=== PATIENT | female | born 1960 | race Caucasian/White ===

== ENCOUNTER 2019-01-24 15:53 | Emergency (ER) | payer BC ==
--- NOTE | 2019-01-24 16:45 | ED Physician Documentation ---
History of Present Illness - Stated complaint Stated Complaint: RT KNEE SWELLING - Chief complaint Chief Complaint: Ext Problem - Additonal information Additional information: This is a 59-year-old female presents with right knee pain. Patient was walking down the stairs she stepped onto her heel for foot and she felt a popping sensation on her right posterior lateral. aspect of her knee she has been able to walk on her knee, but the area behind her knee on the right is sore. She tried using crutches to help prevent it from getting more painful. She has been taking some ibuprofen with some relief of her pain. No fever, no surgeries to the knee. Review of Systems Constitutional: denies: Fever Musculoskeletal: reports: Extremity pain PD PAST MEDICAL HISTORY - Present Medications Home Medications: Ambulatory Orders Medication Instructions Recorded Confirmed No Known Home Medications 01/24/19 01/24/19 - Allergies Allergies/Adverse Reactions: Allergies Allergy/AdvReac Type Severity Reaction Status Date / Time No Known Drug Allergies Allergy Verified 01/24/19 16:04 PD ED PE NORMAL - Vitals Vital signs reviewed: Yes - General General: Alert and oriented X 3 - HEENT HEENT: Atraumatic - Respiratory Respiratory: No respiratory distress - Extremities Extremities: Other (There is some mild edema of the right leg in the posterior aspect/popliteal fossa. The patella, quadriceps tendon, patellar tendon, MCL LC L are all nontender. There is no pain along the joint line. Anterior and posterior drawer test as well as varus and valgus stress testing is negative for laxity. Patient is able to extend her knee to 180 degrees and flex against resistance, though the flexion does cause some pain. Her distal strength is normal and sensation is Intact to light touch. She has tenderness over the Lateral hamstring tendons, No bruising, and the tendons feel intact.) Results - Vitals Vitals: Oxygen O2 Source Room air PD MEDICAL DECISION MAKING - ED course Complexity details: considered differential (Strain, hamstring sprain, tendon damage/rupture, ligamentous injury, fracture) ED course: On exam patient has no bony tenderness, excellent ROM of knee, no signs of fracture. She has very good strength with flexion and extension against resistance, and her tendons and ligaments appear intact. No signs of infection. Given the location of her tenderness I think hamstring injury is probable. She has no bruising around the area and I do not see signs of rupture on exam palpating her tendons and using strength testing. I discussed continued use of crutches, supportive care, and close PCP follow up. If she is not having signficant improvement she warrants an US to assess the extent of the hamstring injury. After a careful discussion of return precautions patient was discharged home. Departure - Departure Disposition: 01 Home, Self Care Clinical Impression: Right hamstring injury Qualifiers: Encounter type: initial encounter Qualified Code(s): S76.301A - Unspecified injury of muscle, fascia and tendon of the posterior muscle group at thigh level, right thigh, initial encounter Condition: Good Follow-Up: Oz Mcginnis DO [Primary Care Provider] - Within 1 week Comments: You have tenderness over your hamstrings, and you might have had an injury or tear of the hamstring. Please rest your leg, ice it at least 4 times daily for the next 48 hours, use crutches, and take Tylenol 650 mg every 6 hours and ibuprofen 600 mg every 6 hours as needed for pain. Schedule follow-up with your primary care provider in the next week, if you are having continued or not improving pain, you should likely get an ultrasound to assess for any significant tear or injury of the hamstrings. If you are having worsening symptoms such as signs of or severe pain, return to the emergency department Discharge Date/Time: 01/24/19 17:07
[2019-01-24 17:07] VITALS: BP 157/107
== END 2019-01-24 17:07 | disposition home or self-care (01) ==
LOC: ED 15:53
DX: S76.301A Unspecified injury of muscle, fascia and tendon of the posterior muscle group at thigh level, right thigh, initial encounter (principal); M25.561 Pain in right knee; X50.1XXA Overexertion from prolonged static or awkward postures, initial encounter; Y93.01 Activity, walking, marching and hiking
CPT/HCPCS: 99282

== ENCOUNTER 2019-03-17 11:56 | Outpatient (CLI) | payer BC, OTHER ==
--- NOTE | 2019-03-17 17:20 | XRAY Report ---
Reason: LEFT WRIST PAIN Procedure Date: 03/17/2019 Accession Number: [id number] / [id number] Procedure: WCP - Wrist 3 View LT CPT Code: Final Report FULL RESULT: EXAM: LEFT WRIST RADIOGRAPHY EXAM DATE: 03/17/2019 11:56 AM. CLINICAL HISTORY: LEFT WRIST PAIN, injury. COMPARISON: None. TECHNIQUE: 3 views. FINDINGS: Bones: Short fifth metacarpal. No fractures or bone lesions. Joints: Normal. No subluxations. Soft Tissues: Normal. No soft tissue swelling. IMPRESSION: No left wrist fracture or malalignment seen. RADIA
== END 2019-03-17 23:59 | disposition home or self-care (01) ==
LOC: DI.WCP 11:56
PROVIDERS: ATTEND Family Medicine
DX: M25.532 Pain in left wrist (principal)

== ENCOUNTER 2020-06-06 07:30 | Outpatient (CLI) | payer OTHER ==
[2020-06-06 12:03] LABS: BASOPHILS % (AUTO) 0.3 %; EOSINOPHILS # (AUTO) 0.1 10^3/uL (0.0-0.7); EOSINOPHILS % (AUTO) 1.3 %; HCT - HEMATOCRIT 46.3 % (37.0-47.0); HGB - HEMOGLOBIN 14.2 g/dL (12.0-16.0); LYMPHOCYTES # (AUTO) 1.8 10^3/uL (1.5-3.5); LYMPHOCYTES % (AUTO) 18.5 %; MEAN CORPUSCULAR HEMOGLOBIN 28.2 pg (27.0-31.0); MEAN CORPUSCULAR HGB CONC 30.7 g/dL (32.0-36.0); MONOCYTES # (AUTO) 0.6 10^3/uL (0.0-1.0); MONOCYTES % (AUTO) 6.2 %; NEUTROPHILS # (AUTO) 7.1 10^3/uL (1.5-6.6); NEUTROPHILS % (AUTO) 72.5 %; PLT - PLATELET COUNT 300 10^3/uL (130-450); RED BLOOD COUNT 5.03 10^6/uL (4.20-5.40); RED CELL DISTRIBUTION WIDTH 14.6 % (12.0-15.0); WHITE BLOOD COUNT 9.8 x10^3/uL (4.8-10.8)
[2020-06-06 12:07] LABS: ALBUMIN 4.1 g/dL (3.2-5.5); ALBUMIN/GLOBULIN RATIO 1.1 (1.0-2.2); ALKALINE PHOSPHATASE 65 IU/L (42-121); ALT ALANINE AMINOTRANSFERASE 29 IU/L (10-60); AST ASPARTATE AMINOTRANSFERASE 28 IU/L (10-42); BILIRUBIN,TOTAL 0.4 mg/dL (0.2-1.0); BUN - BLOOD UREA NITROGEN 18 mg/dL (6-20); CALCIUM 9.6 mg/dL (8.5-10.3); CARBON DIOXIDE - CO2 28 mmol/L (21-32); CHLORIDE 103 mmol/L (101-111); CHOL/HDL RATIO 4.1 (<4.4); CHOLESTEROL 202 mg/dL; CREATININE 0.7 mg/dL (0.4-1.0); GFR - MDRD 86 (>89); GLUCOSE 166 mg/dL (70-100); HDL CHOLESTEROL 49 mg/dL; LDL CHOLESTEROL,CALCULATED 129 mg/dL; LDL/HDL RATIO 2.6 (<4.4); POTASSIUM 4.6 mmol/L (3.5-5.0); SODIUM 141 mmol/L (135-145); TOTAL PROTEIN 7.8 g/dL (6.7-8.2); TRIGLYCERIDES 120 mg/dL; VLDL CHOLESTEROL 24 mg/dL
[2020-06-06 12:18] LABS: THYROID STIMULATING HORMONE 2.56 uIU/mL (0.34-5.60)
[2020-06-06 12:25] LABS: ESTIMATED AVERAGE GLUCOSE 183 mg/dL (70-100)
== END 2020-06-06 23:59 | disposition home or self-care (01) ==
LOC: LAB.WCP 07:30
PROVIDERS: ATTEND Family Medicine
DX: E11.9 Type 2 diabetes mellitus without complications (principal)
CPT/HCPCS: 36415; 80053; 80061; 83036; 83721; 84443; 85025

== ENCOUNTER 2023-04-08 14:45 | Outpatient (CLI) | payer OTHER ==
--- NOTE | 2023-04-08 16:40 | XRAY Report ---
PROCEDURE: Chest 2V INDICATIONS: COUGH TECHNIQUE: 2 views of the chest were acquired. COMPARISON: None. FINDINGS: Surgical changes and devices: None. Lungs and pleura: No pleural effusions or pneumothorax. Lungs are clear. Mediastinum: Mediastinal contours appear normal. Heart size is normal. Bones and chest wall: No suspicious bony lesions. Overlying soft tissues appear unremarkable. IMPRESSION: No acute cardiopulmonary process. Reviewed by: Heidi Fatima MD on 04/08/2023 4:38 PM PST Approved by: Heidi Fatima MD on 04/08/2023 4:38 PM PST Station ID: [id number]
== END 2023-04-08 15:00 | disposition home or self-care (01) ==
LOC: DI.N 14:45
PROVIDERS: ATTEND Family Medicine
DX: R05.9 Cough, unspecified (principal)

== ENCOUNTER 2023-05-20 15:37 | Outpatient (CLI) | payer OTHER ==
--- NOTE | 2023-05-21 09:56 | Mammography Report ---
BILATERAL DIGITAL SCREENING MAMMOGRAM 3D/2D: 05/20/2023 CLINICAL: Routine screening. Comparison is made to exams dated: 06/11/2010 mammogram and 05/29/2009 mammogram - [facility]. Both breasts are heterogeneously dense, which may obscure small masses (category c / 51-75% glandular tissue). There are benign masses in both breasts. No significant masses, calcifications, or other findings are seen in either breast. There has been no significant interval change. IMPRESSION: BENIGN There is no mammographic evidence of malignancy. A 1 year screening mammogram is recommended. Based on the Tyrer Cuzick model (a risk assessment model) the patient's lifetime risk is 6.2% and her 10 year risk is 2.7%. According to the ACR, ACS, and NCCN guidelines, an annual breast MRI exam carolyn g with mammogram is recommended if the patient's lifetime risk is 20% or greater. This exam was interpreted at Station ID: [id number]. NOTE: For mammograms, a report in lay terms will be sent to the patient. Approximately 15% of breast malignancies will not be visualized mammographically. In the management of a palpable breast mass, a negative mammogram must not discourage biopsy of a clinically suspicious lesion. Electronically Signed By: Kem moreau/clifton:05/21/2023 08:08:25 letter sent: No_Letter ACR BI-RADS Category 2: Benign Finding(s) 3342F PARENCHYMAL PATTERN: (D) - The breast(s) demonstrate(s) heterogeneously dense fibroglandular naresh aponte. BI-RADS CATEGORY: (2) - 2 RECOMMENDATION: (ANNUAL) - Recommend routine annual screening mammography. [id number] 1 year screening LATERALITY: (B)
== END 2023-05-20 15:38 | disposition home or self-care (01) ==
LOC: DI.N 15:37
DX: Z12.31 Encounter for screening mammogram for malignant neoplasm of breast (principal); R92.333 Mammographic heterogeneous density, bilateral breasts

== ENCOUNTER 2023-07-16 10:21 | Day surgery (SDC) | payer OTHER ==
--- NOTE | 2023-07-16 06:37 | HISTORY & PHYSICAL EXAMINATION ---
PMH/PSH - Past Medical History Cardiovascular: positive: Hypertension, High cholesterol Respiratory: positive: None Endocrine/Autoimmune: positive: Type 2 diabetes GI: positive: None : positive: None HEENT: positive: None Psych: positive: None Musculoskeletal: positive: None Derm: positive: None MRSA Hx?: No Meds/Allgy - Home Medications Home Medications: Ambulatory Orders Medication Instructions Recorded Confirmed Atorvastatin [Lipitor] 10 mg PO HS 07/15/23 07/15/23 Empagliflozin [Jardiance] 10 mg PO DAILY 07/15/23 07/15/23 Lisinopril [Zestril] 10 mg PO DAILY 07/15/23 07/15/23 Metformin HCl 1,000 mg PO BID 07/15/23 07/15/23 Pravastatin [Pravachol] 10 mg PO HS 07/15/23 07/15/23 - Allergies Allergies/Adverse Reactions: Allergies Allergy/AdvReac Type Severity Reaction Status Date / Time simvastatin AdvReac Unknown Unknown Verified 07/16/23 11:09 Impression/Plan - Problem List Problem List: History of Present Illness: June is a 63 year old female referred to my office for colonoscopy after a + cologuard test. She has no symptom related to the lower GI tract. She has a positive FH of colon polyps (sister) Vital Signs: Patient Profile: 63 Years Old Female Height: 66 inches (165.10 cm) Weight: 220 pounds BMI: 35.64 Temp: 97.6 degrees F oral Pulse rate: 91 / minute Resp: 20 per minute BP sittin / 80 Vitals Entered By: Leandra Alcala RN (June 08, 2023 2:15 PM) Meds Reviewed: Done Mallampati Score Class I: The soft palate, tonsils, anterior and posterior pillars, and the entire uvula are easily visible ASA Physical Status Classification System ASA II: A patient with mild systemic disease Allergies: SIMVASTATIN (SIMVASTATIN) (Critical) * STRAWBERRIES (Critical) Social History Reviewed: Done Medications: Meds Reviewed: Done Jardiance 10 mg tablet (empagliflozin) Take 1 tablet by mouth once a day lisinopril 20 mg tablet (lisinopril) Take 1 tablet by mouth once a day metformin 1,000 mg tablet (metformin) 1 tablet by mouth twice a day with meals pravastatin 10 mg tablet (pravastatin) Take 1 tablet by mouth once a day at bedtime Problems: Problems Reviewed: Done Chronic kidney disease (CKD), stage 3a (TKV26-W59.31) Hypertension (ICD-401.9) (HOT41-R11) Colorectal cancer detected by DNA-based stool screening (LMX59-R10.5) Screening for colon cancer (ICD-V76.51) (VJN85-F67.11) Hyperlipidemia (ICD-272.4) (NIK02-W40.5) Type 2 diabetes mellitus with hyperglycemia (ICD-250.02) (IMW66-R59.65) Screening for colon cancer (ICD-V76.51) (QAI71-P79.11) Cough (ICD-786.2) (DWE89-I56.8) Knee pain, right (ICD-719.46) (EPQ98-A86.561) Physical examination (ICD-V70.0) (FRW29-V21.00) Screening, colon cancer (ICD-V76.51) (ZBC93-Q60.11) Physical examination (ICD-V70.0) (IXE18-T35.89) HYPERTENSION, BENIGN ESSENTIAL (ICD-401.1) (SQL07-R79) OBESITY NOS (ICD-278.00) (ENO62-K09.9) DYSLIPIDEMIA (ICD-272.9) (PNV35-N50.9) DIABETES MELLITUS (ICD-250.00) (WHS71-M42.9) REACTIVE AIRWAY DISEASE (ICD-493.90) (KLT82-W98.998) Past Medical History: Current Problems: OBESITY NOS (ICD-278.00) DYSLIPIDEMIA (ICD-272.9) DIABETES MELLITUS (ICD-250.00) REACTIVE AIRWAY DISEASE (ICD-493.90) [Family History-CCC] Risk Factors-CCC: Smoked Tobacco Use: Former smoker Year Quit: 2006 Years Since Last Quit: 19 Smokeless Tobacco Use: Never Passive Smoke Exposure: no Alcohol Use: yes Type: rare Drinks per day: social Drug Use: no Marijuana Use: no Review of Systems General Denies fever, chills, sweats, anorexia, fatigue, weakness, malaise, weight loss and sleep disorder. Eyes Denies vision loss - 1 eye, double vision, eye irritation, vision loss - both eyes, blurring, eye pain, halos, discharge and light sensitivity. ENT Denies ringing in the ears, ear discharge, earache, decreased hearing, nasal congestion, nosebleeds, difficulty swallowing, hoarseness and sore throat. CV Denies difficulty breathing at night, near fainting, chest pain or discomfort, racing/skipping heart beats, fatigue, lightheadedness, shortness of breath with exertion, palpitations, swelling of hands or feet, difficulty breathing while lying down, fainting, leg cramps with exertion, bluish discoloration of lips or nails and weight gain. Resp Denies sleep disturbances due to breathing, cough, shortness of breath, coughing up blood, chest discomfort, wheezing, excessive sputum and excessive snoring. GI Denies excessive appetite, loss of appetite, indigestion, vomiting blood, nausea, vomiting, yellowish skin color, gas, abdominal pain, abdominal bloating, hemorrhoids, diarrhea, change in bowel habits, constipation, dark tarry stools and bloody stools. Denies foul urinary discharge, blood in urine, urinary frequency, inability to empty bladder, urinary urgency, kidney pain, trouble starting urinary stream, painful urination, night time urination, inability to control bladder, genital sores, lack of sexual drive, excessive heavy periods, missed periods, unusual urinary color, other abnormal vaginal bleeding and pelvic pain. MS Denies muscle cramps, joint pain, joint swelling, presence of joint fluid, back pain, stiffness, muscle weakness, arthritis, gout, loss of strength and muscle aches. Derm Denies excessive perspiration, night sweats, suspicious lesions, changes in nail beds, dryness, poor wound healing, unusual hair distribution, skin cancer, itching, changes in color of skin, flushing and rash. Neuro Denies difficulty with concentration, poor balance, headaches, disturbances in coordination, numbness, inability to speak, falling down, tingling, brief paralysis, visual disturbances, seizures, weakness, sensation of room spinning, tremors, fainting, excessive daytime sleeping and memory loss. Psych Denies sense of great danger, anxiety, thoughts of suicide, mental problems, depression, thoughts of violence and frightening visions or sounds. Endo Denies excessive hunger, cold intolerance, heat intolerance, excessive urination, excessive thirst and weight change. Heme Denies enlarged lymph nodes, bleeding, skin discoloration, abnormal bruising and fevers. Allergy Denies persistent infections, hives or rash, seasonal allergies and HIV exposure. Vital Signs: Patient Profile: 63 Years Old Female Height: 66 inches (165.10 cm) Weight: 220 pounds BMI: 35.64 Temp: 97.6 degrees F oral Pulse rate: 91 / minute Resp: 20 per minute BP sittin / 80 Problems were reviewed with the patient during this visit. Medications were reviewed with the patient during this visit. Allergies: SIMVASTATIN (SIMVASTATIN) (Critical) * STRAWBERRIES (Critical) Physical Exam General: Well developed, well nourished, in no acute distress. Head: Normocephalic and atraumatic. Eyes: PERRL/EOM intact, conjunctiva and sclera clear. Ears: Normal hearing. Nose: No deformity, discharge, inflammation, or lesions. Neck: No masses, thyromegaly, or abnormal cervical nodes. Lungs: Clear bilaterally to auscultation. Heart: Regular rate and rhythm; G2/6 JAZLYN. Abdomen: Bowel sounds positive; abdomen soft and non-tender without masses, organomegaly or hernias noted. Msk: No deformity or scoliosis noted with normal posture and gait. Pulses: Pulses normal in all 4 extremities. Extremities: No clubbing, cyanosis, edema Neurologic: No focal deficits Skin: Intact without lesions or rashes. Cervical Nodes: No significant adenopathy. Psych: Alert and cooperative; normal mood and affect; normal attention span and concentration. Blood Pressure: Today's BP: 124/80 mmHg Impression & Recommendations: Problem # 1: Colorectal cancer detected by DNA-based stool screening (ICD10- R19.5) Assessment: Screening colonoscopy exam request (+ DNA test) Plan: Colonoscopy under monitored sedation Consent: June has been counseled for the procedure, it's indications, risks, benefits and expected outcome as well as alternative therapies. We specifically discussed risks associated with anesthesia and insertion of the endoscope into the large intestine which includes bleeding and injury to the colon which may require surgical intervention. June understands, agrees, and consents to the proposed operative strategy and requests that we proceed with the procedure as outlined in our discussion. Sourav Hoffmann MD, [facility] General Surgery Service Date: 07/16/2023; 12:05 Chart Update: Patient examined, chart reviewed. There are no changes to the patient's clinical status that would preclude proceeding with the scheduled procedure today. Sourav Hoffmann MD, [facility] Surgery Service
[2023-07-16] MEDS: LACTATED RINGERS 1,000 ML IV ONE ×2 (10:35→13:06)
--- NOTE | 2023-07-16 11:14 | ANESTHESIA ---
Pre-Anesthesia VS, & Labs - Diagnosis screening exam - Procedure colonoscopy Height: 5 ft 5 in Weight (kg): 96 kg Body Mass Index: 35.2 BMI Classification: Obese - NPO >8 hours - Is Patient ?: No Home Medications and Allergies Home Medications: Ambulatory Orders Atorvastatin [Lipitor] 10 mg PO HS 07/15/23 Empagliflozin [Jardiance] 10 mg PO DAILY 07/15/23 Lisinopril [Zestril] 10 mg PO DAILY 07/15/23 Metformin HCl 1,000 mg PO BID 07/15/23 Pravastatin [Pravachol] 10 mg PO HS 07/15/23 Atorvastatin [Lipitor] 10 mg PO HS 07/15/23 Empagliflozin [Jardiance] 10 mg PO DAILY 07/15/23 Lisinopril [Zestril] 10 mg PO DAILY 07/15/23 Metformin HCl 1,000 mg PO BID 07/15/23 Pravastatin [Pravachol] 10 mg PO HS 07/15/23 Allergies/Adverse Reactions: Allergies Allergy/AdvReac Type Severity Reaction Status Date / Time simvastatin AdvReac Unknown Unknown Verified 07/16/23 11:09 Anes History & Medical History - Anesthetic History Anesthesia Complications: reports: No previous complications - Medical History Cardiovascular: reports: Hypertension, High cholesterol Pulmonary: reports: None Gastrointestinal: reports: None Urinary: reports: None Neuro: reports: None Musculoskeletal: reports: None Endocrine/Autoimmune: reports: Type 2 diabetes Skin: reports: None Smoking Status: Former smoker (quit 20 years ago) Psychosocial: reports: No issues indicated Exam General: Alert, Oriented x3, Cooperative, No acute distress Dental: WNL Mouth Openin Fingerbreadth Neck Mobility: Normal Mallampati classification: II Thyromental Distance: 4-6 cm Mental/Cognitive Status: Alert/Oriented X3, Normal for patient Plan Anesthesia Type: General, Total IV Consent for Procedure(s) Verified and Reviewed: Yes Code Status: Attempt Resuscitation ASA classification: 2-Mild systemic disease Is this case an emergency?: No
[2023-07-16] MEDS ORDERED: PROPOFOL 500 MG/50 ML 500 MG/50 ML VIAL ONE ×2 (11:18→12:47)
[2023-07-16] MEDS ORDERED: GLUCAGON 1 MG/ML VIAL ONE (12:23)
[2023-07-16] MEDS ORDERED: GLYCOPYRROLATE 1 MG/5 ML VIAL ONE (12:45)
[2023-07-16 13:40] VITALS: BP 100/83; O2SAT 95
--- NOTE | 2023-07-16 14:52 | ANESTHESIA POST OP EVALUATION ---
Anesthesia Post Eval - Post Anesthesia Eval Vitals: Last Vital Signs Temp 36.3 C L 07/16/23 13:06 Pulse 84 07/16/23 13:30 Resp 21 07/16/23 13:30 BP 100/83 H 07/16/23 13:30 Pulse Ox 95 07/16/23 13:30 O2 Flow Rate CV Function Including HR & BP: Stable Pain Control: Satisfactory Nausea & Vomiting: Negative Mental Status: Baseline Respiratory Status: Airway Patent Hydration Status: Satisfactory Anesthesia Complications: None
== END 2023-07-16 10:22 | disposition home or self-care (01) ==
LOC: SDS 10:21
PROVIDERS: ATTEND Surgery
PROC: 0DBN8ZZ Excision of Sigmoid Colon, Via Natural or Artificial Opening Endoscopic (ICD-10-PCS; 2023-07-16)
PROC: 0DBP8ZZ Excision of Rectum, Via Natural or Artificial Opening Endoscopic (ICD-10-PCS; principal; 2023-07-16 11:30)
DX: R19.5 Other fecal abnormalities (principal); K62.1 Rectal polyp; K63.5 Polyp of colon; K57.30 Diverticulosis of large intestine without perforation or abscess without bleeding; E66.9 Obesity, unspecified; I10 Essential (primary) hypertension; Z68.35 Body mass index [BMI] 35.0-35.9, adult; E11.9 Type 2 diabetes mellitus without complications; Z79.84 Long term (current) use of oral hypoglycemic drugs; Z87.891 Personal history of nicotine dependence; Z83.719 Family history of colon polyps, unspecified
CPT/HCPCS: 45380; 45385; J1610; J7120